=== PATIENT | female | born 1970 | race Hispanic/Latino ===

== ENCOUNTER 2020-06-10 20:32 | Inpatient (IN) | payer OTHER ==
[~2020-06-10] VITALS: Ht 162.6 cm; Wt 68.0 kg
[2020-06-10 21:05] LABS: BASOPHILS % (AUTO) 0.4 % (0.0-5.0); EOSINOPHILS % (AUTO) 1.4 % (0.0-8.0); LYMPHOCYTES % (AUTO) 51.9 % (21.0-51.0); MEAN CORPUSCULAR HEMOGLOBIN 29.5 pg (27.0-33.0); MEAN CORPUSCULAR HGB CONC 32.4 g/dL (32.0-36.0); MEAN CORPUSCULAR VOLUME 90.9 fL (79-99); MONOCYTES % (AUTO) 6.6 % (3.0-13.0); NEUTROPHILS % (AUTO) 39.6 % (40.0-77.0); PLATELET COUNT (AUTO) 244 K/uL (130-400); RED BLOOD CELL COUNT(AUTO) 4.07 MIL/uL (4.00-5.50); RED CELL DISTRIBUTION WIDTH 12.6 % (11.0-15.5); WHITE BLOOD COUNT (AUTO) 7.3 K/uL (4.8-10.8)
[2020-06-10 21:13] LABS: INR 0.97 (0.85-1.15); PROTHROMBIN TIME 10.6 SEC (9.6-11.6)
[2020-06-10 21:14] LABS: PARTIAL THROMBOPLASTIN TIME 27.6 SEC (26.3-35.5)
[2020-06-10 21:23] LABS: BILIRUBIN,TOTAL 0.2 mg/dL (0.2-1.0); POTASSIUM 3.6 mmol/L (3.5-5.1)
[2020-06-10 21:26] LABS: B-TYPE NATRIURETIC PEPTIDE 15 pg/mL (0-100)
[2020-06-10] MEDS ORDERED: ASPIRIN 325 MG TABLET ONE (21:26)
[2020-06-11] VITALS (8 sets, daily range): BP systolic 113–134; BP diastolic 64–75
[2020-06-11] MEDS ORDERED: ENOXAPARIN SODIUM 80 MG/0.8 ML SQ ONE ×2 (00:45→15:09)
[2020-06-11] MEDS ORDERED: CLOPIDOGREL 300MG TAB ONE ×2 (00:46→12:07)
[2020-06-11] MEDS ORDERED: NITROGLYCERIN 0.4 MG SL TAB SL PRN (01:15)
[2020-06-11] MEDS ORDERED: LACTULOSE 20 GM/30 ML UDCUP PO PRN (01:15)
[2020-06-11] MEDS ORDERED: ACETAMINOPHEN 325 MG TAB PO PRN ×2 (01:15)
[2020-06-11] MEDS ORDERED: GUAIFENESIN-DM 200/20 MG 10 ML PO PRN (01:15)
[2020-06-11] MEDS ORDERED: DIPHENHYDRAMINE HCL 25 MG CAPSULE PO PRN (01:15)
[2020-06-11] MEDS ORDERED: ONDANSETRON 4MG INJ IV PRN (01:15)
[2020-06-11] MEDS ORDERED: MAG/ALUM/SIMETH 30 ML UDCUP PO PRN (01:15)
[2020-06-11] MEDS ORDERED: LACTATED RINGERS 1000ML 1,000 ML IV SCH (01:15)
[2020-06-11] MEDS ORDERED: DiphenhydrAMINE HCL 50 MG/ML VIAL IV PRN (01:15)
[2020-06-11 02:55] LABS: APPEARANCE,URINE Clear (CLEAR); BILIRUBIN,URINE Negative (NEGATIVE); COLOR,URINE Yellow (YELLOW); GLUCOSE, URINE (UA) Negative (NEGATIVE); KETONES,URINE Negative (NEGATIVE); LEUKOCYTE ESTERASE ,URINE Small (NEGATIVE); NITRATE,URINE Negative (NEGATIVE); OCCULT BLOOD,URINE Negative (NEGATIVE); PROTEIN,URINE Negative (NEGATIVE); UROBILINOGEN,URINE 0.2 mg/dL (0.2-1.0)
[2020-06-11 03:13] LABS: BACTERIA,URINE Few /HPF (None Seen); RBC,URINE 0-1 /HPF (0-1); SQUAMOUS EPITHELIAL CELL,UR Moderate /HPF (0-2)
[2020-06-11] MEDS ORDERED: ENOXAPARIN SODIUM 100 MG/1 ML SQ ONE (08:44)
[2020-06-11] MEDS ORDERED: FAMOTIDINE 20MG TAB ONE (08:45)
[2020-06-11] MEDS ORDERED: METOPROLOL TARTRATE 25 MG TAB ONE (08:45)
[2020-06-11] MEDS ORDERED: LACTATED RINGERS 1000ML 1,000 ML IV ONE (08:45)
[2020-06-11] MEDS ORDERED: ASPIRIN 325 MG TABLET ONE (08:45)
[2020-06-11] MEDS ORDERED: ENOXAPARIN SODIUM 80 MG/0.8 ML SQ SCH (09:00)
[2020-06-11] MEDS ORDERED: ASPIRIN 325 MG TABLET PO SCH (09:00)
[2020-06-11] MEDS ORDERED: METOPROLOL TARTRATE 25 MG TAB PO SCH (09:00)
[2020-06-11] MEDS: FAMOTIDINE 20MG TAB PO SCH ×2 (09:00→20:45)
[2020-06-11] MEDS ORDERED: 0.9% NACL 500ML IV.SOLN 500 ML IV SCH (12:30)
[2020-06-11] MEDS ORDERED: NICARDIPINE 25MG INJ IV ONE (14:30)
[2020-06-11] MEDS ORDERED: HEPARIN 10,000 UNIT/10ML (1,000 UNIT/ML) VIAL ONE (14:30)
[2020-06-11] MEDS ORDERED: LIDOCAINE HCL 400MG/20ML VIAL ONE (14:30)
[2020-06-11] MEDS ORDERED: MIDAZOLAM HCL 1 MG/ML 2ML VIAL ONE (14:33)
[2020-06-11] MEDS ORDERED: IOPAMIDOL-370 100 ML VIAL IV ONE (14:33)
[2020-06-11] MEDS ORDERED: NITROGLYCERIN 2 MG VIAL IV ONE (14:33)
[2020-06-11] MEDS ORDERED: FENTANYL CITRATE PF 50 MCG/1 ML 2ML VIAL ONE (14:34)
[2020-06-11] MEDS ORDERED: IOHEXOL-350 50ML VIAL IV ONE (15:16)
[2020-06-11] MEDS: 0.9%NACL 1000ML 1,000 ML IV SCH ×2 (16:19→18:42)
[2020-06-11] MEDS ORDERED: ATORVASTATIN 40 MG TABLET PO SCH (21:00)
[2020-06-12 00:07] VITALS: BP 90/42
[2020-06-12 04:00] VITALS: BP 106/60
[2020-06-12 05:35] LABS: CREATININE 0.9 mg/dL (0.5-1.5); POTASSIUM 3.9 mmol/L (3.5-5.1)
[2020-06-12 08:00] VITALS: BP 101/62
[2020-06-12] MEDS: FAMOTIDINE 20MG TAB PO SCH (09:00)
[2020-06-12] MEDS ORDERED: CLOPIDOGREL 75MG TAB PO SCH (09:00)
[2020-06-12] MEDS ORDERED: ASPIRIN 81MG CHEW TAB PO SCH (09:00)
[2020-06-12] MEDS ORDERED: METOPROLOL SUCCINATE 50 MG TAB.SR.24H PO SCH (09:00)
[2020-06-12] MEDS ORDERED: LOSARTAN 50 MG TABLET PO SCH (09:00)
[2020-06-12 12:00] VITALS: BP 101/52
[2020-06-12] MEDS ORDERED: FAMO20TA8 PO (14:34)
[2020-06-12] MEDS ORDERED: LOSA50TA2 PO (14:34)
[2020-06-12] MEDS ORDERED: METO50TA9 PO (14:34)
[2020-12-02] MEDS ORDERED: LOSA50TA64 PO (16:09)
[2020-12-02] MEDS ORDERED: METO-408 PO (16:09)
[2020-12-29] MEDS ORDERED: METO-408 PO (09:00)
[2020-12-29] MEDS ORDERED: LOSA50TA64 PO (09:00)
[2020-12-29] MEDS ORDERED: AEC81 PO (09:00)
== END 2020-06-12 16:59 | disposition home or self-care (01) | DRG 280 ==
LOC: EDH 20:32 → EDHIP 06-11 01:11 → OBSVTOIN 06-11 01:11 → 4DH 06-11 16:25
PROVIDERS: ADMIT Family Medicine; ATTEND Family Medicine
PROC: 4A023N7 Measurement of Cardiac Sampling and Pressure, Left Heart, Percutaneous Approach (ICD-10-PCS; principal; 2020-06-11)
PROC: B2151ZZ Fluoroscopy of Left Heart using Low Osmolar Contrast (ICD-10-PCS; 2020-06-11)
PROC: B2111ZZ Fluoroscopy of Multiple Coronary Arteries using Low Osmolar Contrast (ICD-10-PCS; 2020-06-11)
DX: I21.4 Non-ST elevation (NSTEMI) myocardial infarction (principal); I50.43 Acute on chronic combined systolic (congestive) and diastolic (congestive) heart failure; I51.81 Takotsubo syndrome; Z90.710 Acquired absence of both cervix and uterus; Z82.49 Family history of ischemic heart disease and other diseases of the circulatory system
CPT/HCPCS: 36415; 71045; 80048; 80053; 80061; 81001; 83880; 84484; 85025; 85610; 85730; 93005; 93306; 93356; 93458; 99156; 99157; C1769; C1887; G0378; J1644; J1650; J2250; J2405; J3010; J3490; J7120; Q9967

== ENCOUNTER 2020-10-05 20:56 | Emergency (ER) | payer OTHER ==
[~2020-10-05] VITALS: Ht 167.6 cm; Wt 68.0 kg
[~2020-10-05 20:56] MED LIST: FAMO20TA8 PO; LOSA50TA2 PO; METO50TA9 PO
[2020-10-05 21:00] VITALS: BP 117/61
[2020-10-05 21:22] LABS: BASOPHILS % (AUTO) 0.4 % (0.0-5.0); EOSINOPHILS % (AUTO) 2.4 % (0.0-8.0); HEMATOCRIT 34.9 % (36-48); LYMPHOCYTES % (AUTO) 48.4 % (21.0-51.0); MEAN CORPUSCULAR HEMOGLOBIN 29.7 pg (27.0-33.0); MEAN CORPUSCULAR HGB CONC 32.4 g/dL (32.0-36.0); MEAN CORPUSCULAR VOLUME 91.6 fL (79-99); MONOCYTES % (AUTO) 7.4 % (3.0-13.0); NEUTROPHILS % (AUTO) 41.3 % (40.0-77.0); PLATELET COUNT (AUTO) 244 K/uL (130-400); RED BLOOD CELL COUNT(AUTO) 3.81 MIL/uL (4.00-5.50); RED CELL DISTRIBUTION WIDTH 12.5 % (11.0-15.5); WHITE BLOOD COUNT (AUTO) 7.1 K/uL (4.8-10.8)
[2020-10-05] MEDS ORDERED: ORPHENADRINE CITRATE 30 MG/ML ML IV ONE (21:30)
[2020-10-05] MEDS ORDERED: KETOROLAC 30MG VIAL (30MG/ML) IV ONE (21:30)
[2020-10-05 21:40] LABS: INR 0.97 (0.85-1.15); PROTHROMBIN TIME 10.6 SEC (9.6-11.6)
[2020-10-05 21:49] LABS: B-TYPE NATRIURETIC PEPTIDE 70 pg/mL (0-100)
[2020-10-05 21:52] LABS: CREATININE 0.9 mg/dL (0.5-1.5); POTASSIUM 3.9 mmol/L (3.5-5.1)
[2020-10-05 21:56] LABS: ALBUMIN 3.8 g/dL (3.5-5.0); BILIRUBIN,TOTAL 0.2 mg/dL (0.2-1.0); TOTAL PROTEIN, SERUM 7.8 g/dL (6.0-8.3)
[2020-10-05 22:22] VITALS: BP 33/76
[2020-10-06] MEDS ORDERED: MELO7.5T12 PO (00:25)
[2020-10-06] MEDS ORDERED: ORPH-43 PO (00:25)
[2020-10-06 00:29] VITALS: BP 122/79
== END 2020-10-06 00:44 | disposition home or self-care (01) ==
LOC: EDH 20:56
DX: R07.89 Other chest pain (principal); M79.10 Myalgia, unspecified site; Z79.1 Long term (current) use of non-steroidal anti-inflammatories (NSAID); Z79.899 Other long term (current) drug therapy; I25.2 Old myocardial infarction
CPT/HCPCS: 36415; 71045; 80053; 82550; 83880; 84484 ×2; 85025; 85610; 93005; 96374; 96375; 99285; J1885; J2360

== ENCOUNTER → 2020-10-09 | Outpatient (CLI) | payer OTHER ==
[~2020-10-09] MED LIST changes: +MELO7.5T12 PO; +ORPH-43 PO
== END | disposition home or self-care (01) ==
LOC: SHCH 14:11
PROVIDERS: ATTEND Internal Medicine
DX: Q21.1 Atrial septal defect (principal); I34.0 Nonrheumatic mitral (valve) insufficiency; R55 Syncope and collapse
CPT/HCPCS: 93306; 93356

== ENCOUNTER 2020-12-03 07:30 | Day surgery (SDC) | payer OTHER ==
[2020-11-27 13:41] LABS: BASOPHILS % (AUTO) 0.5 % (0.0-5.0); EOSINOPHILS % (AUTO) 1.5 % (0.0-8.0); HEMATOCRIT 37.2 % (36-48); LYMPHOCYTES % (AUTO) 45.8 % (21.0-51.0); MEAN CORPUSCULAR HEMOGLOBIN 29.5 pg (27.0-33.0); MEAN CORPUSCULAR HGB CONC 32.3 g/dL (32.0-36.0); MEAN CORPUSCULAR VOLUME 91.4 fL (79-99); MONOCYTES % (AUTO) 5.7 % (3.0-13.0); NEUTROPHILS % (AUTO) 46.3 % (40.0-77.0); PLATELET COUNT (AUTO) 253 K/uL (130-400); RED BLOOD CELL COUNT(AUTO) 4.07 MIL/uL (4.00-5.50); RED CELL DISTRIBUTION WIDTH 12.9 % (11.0-15.5); WHITE BLOOD COUNT (AUTO) 6.1 K/uL (4.8-10.8)
[2020-11-27 13:49] LABS: CREATININE 0.9 mg/dL (0.5-1.5)
[2020-11-27 13:53] LABS: INR 0.98 (0.85-1.15); PROTHROMBIN TIME 10.7 SEC (9.6-11.6)
[2020-11-27 13:54] LABS: PARTIAL THROMBOPLASTIN TIME 29.5 SEC (26.3-35.5)
[2020-12-02 10:57] VITALS: BP 133/73
[~2020-12-03] VITALS: Ht 167.6 cm; Wt 70.8 kg
[2020-12-03] VITALS (19 sets, daily range): BP systolic 101–139; BP diastolic 53–91
[~2020-12-03 07:30] MED LIST changes: +0.9%NACL 1000ML 1,000 ML IV ONE; -FAMO20TA8 PO; +FENTANYL CITRATE PF 50 MCG/1 ML 2ML VIAL ONE; +FLUMAZENIL 0.1MG/1ML 5ML VIAL IV ONE; +LIDOCAINE HCL 2% VISCOUS 15 ML UDCUP ONE; -LOSA50TA2 PO; +LOSA50TA64 PO; -MELO7.5T12 PO; +METO-408 PO; -METO50TA9 PO; +MIDAZOLAM HCL 1 MG/ML 2ML VIAL ONE; +NALOXONE HCL 0.4 MG/1 ML ML ONE; -ORPH-43 PO
[2020-12-03] MEDS ORDERED: LIDOCAINE HCL 2% VISCOUS 15 ML UDCUP PO SCH (08:30)
[2020-12-29] MEDS ORDERED: AEC81 PO (09:00)
[2020-12-29] MEDS ORDERED: LOSA50TA64 PO (09:00)
[2020-12-29] MEDS ORDERED: METO-408 PO (09:00)
== END 2020-12-03 10:30 | disposition home or self-care (01) ==
LOC: DAH 07:30
PROVIDERS: ATTEND Internal Medicine
DX: Q21.2 Atrioventricular septal defect (principal); I51.81 Takotsubo syndrome; F84.0 Autistic disorder; Z79.01 Long term (current) use of anticoagulants; Z79.899 Other long term (current) drug therapy; Z79.82 Long term (current) use of aspirin; Z98.890 Other specified postprocedural states
CPT/HCPCS: 36415; 80048; 85025; 85610; 85730; 93312; A4215; A4216; A4221; A4222; A4223 ×3; A4606; A4615; A4657; A4663; A7002; J2250; J3010; J7030; 93313; 99152; 99153; J2310; J3490

== ENCOUNTER 2020-12-30 06:04 | Day surgery (SDC) | payer OTHER ==
[2020-12-26 15:28] LABS: BASOPHILS % (AUTO) 0.4 % (0.0-5.0); EOSINOPHILS % (AUTO) 1.2 % (0.0-8.0); HEMATOCRIT 39.2 % (36-48); LYMPHOCYTES % (AUTO) 51.4 % (21.0-51.0); MEAN CORPUSCULAR HEMOGLOBIN 29.3 pg (27.0-33.0); MEAN CORPUSCULAR HGB CONC 31.9 g/dL (32.0-36.0); MEAN CORPUSCULAR VOLUME 91.8 fL (79-99); NEUTROPHILS % (AUTO) 38.8 % (40.0-77.0); PLATELET COUNT (AUTO) 243 K/uL (130-400); RED BLOOD CELL COUNT(AUTO) 4.27 MIL/uL (4.00-5.50); RED CELL DISTRIBUTION WIDTH 13.2 % (11.0-15.5); WHITE BLOOD COUNT (AUTO) 5.1 K/uL (4.8-10.8)
[2020-12-26 15:31] LABS: APPEARANCE,URINE Clear (CLEAR); BILIRUBIN,URINE Negative (NEGATIVE); COLOR,URINE Yellow (YELLOW); GLUCOSE, URINE (UA) Negative (NEGATIVE); KETONES,URINE Negative (NEGATIVE); LEUKOCYTE ESTERASE ,URINE Negative (NEGATIVE); NITRATE,URINE Negative (NEGATIVE); OCCULT BLOOD,URINE Negative (NEGATIVE); PH,URINE 5.5 (5.0-8.0); PROTEIN,URINE Negative (NEGATIVE); UROBILINOGEN,URINE 0.2 mg/dL (0.2-1.0)
[2020-12-26 15:40] LABS: CREATININE 0.8 mg/dL (0.5-1.5); POTASSIUM 4.3 mmol/L (3.5-5.1)
[2020-12-26 15:47] LABS: INR 0.96 (0.85-1.15); PROTHROMBIN TIME 10.5 SEC (9.6-11.6)
[2020-12-29 08:31] VITALS: BP 117/67
[2020-12-30] VITALS (10 sets, daily range): BP systolic 97–132; BP diastolic 51–74
[~2020-12-30] VITALS: Ht 162.6 cm; Wt 70.7 kg
[~2020-12-30 06:04] MED LIST changes: +0.9% NACL 500ML IV.SOLN 500 ML IV SCH; -0.9%NACL 1000ML 1,000 ML IV ONE; +AEC81 PO; -FENTANYL CITRATE PF 50 MCG/1 ML 2ML VIAL ONE; -FLUMAZENIL 0.1MG/1ML 5ML VIAL IV ONE; -LIDOCAINE HCL 2% VISCOUS 15 ML UDCUP ONE; -MIDAZOLAM HCL 1 MG/ML 2ML VIAL ONE; -NALOXONE HCL 0.4 MG/1 ML ML ONE
[2020-12-30] MEDS ORDERED: 0.9%NACL 1000ML 1,000 ML IV ONE (06:15)
[2020-12-30] MEDS ORDERED: LIDOCAINE HCL 400MG/20ML VIAL ONE (07:33)
[2020-12-30] MEDS ORDERED: IOHEXOL 350 MG/ML 100ML INFUS..BTL IV ONE (07:33)
[2020-12-30] MEDS ORDERED: FENTANYL CITRATE PF 50 MCG/1 ML 2ML VIAL ONE (07:52)
== END 2020-12-30 14:00 | disposition home or self-care (01) ==
LOC: DAH 06:04
PROVIDERS: ATTEND Internal Medicine
DX: Q21.1 Atrial septal defect (principal); I51.81 Takotsubo syndrome; Z79.899 Other long term (current) drug therapy; Z79.01 Long term (current) use of anticoagulants; Z79.82 Long term (current) use of aspirin
CPT/HCPCS: 36415; 71045; 80048; 81003; 85025; 85610; 85730; 93005; 93451; A4215; A4216; A4221; A4222; A4223 ×3; A4606; A4663; C1769; C1894 ×2; J1644; J3010; J3490; J7030; Q9967

== ENCOUNTER → 2021-12-15 | Outpatient (CLI) | payer OTHER ==
[~2021-12-15] MED LIST changes: -0.9% NACL 500ML IV.SOLN 500 ML IV SCH
== END | disposition home or self-care (01) ==
LOC: SHCH 10:12
PROVIDERS: ATTEND Internal Medicine
DX: Q21.11 Secundum atrial septal defect (principal); I34.0 Nonrheumatic mitral (valve) insufficiency
CPT/HCPCS: 93306